=== PATIENT | male | born 1965 | race Hispanic/Latino ===

== ENCOUNTER 2022-06-08 05:43 | Emergency (ER) | payer BC ==
[2022-06-08] MEDS ORDERED: Lidocaine 1% (PF) 30 ML VIAL ONE (06:15)
[2022-06-08] MEDS ORDERED: Acetaminophen 500 MG TAB ONE (06:15)
[2022-06-08] MEDS ORDERED: Bacitracin 1 PK ONE (06:24)
[2022-06-08 07:09] LABS: Bilirubin Negative (Negative); Blood, Urine Moderate (Negative); Clarity Clear (Clear); Glucose, Urine (Dipstick) Negative (Negative); Ketone, Urine Negative (Negative); Leukocyte Negative (Negative); Nitrite Negative (Negative); Protein, Urine (Dipstick) Negative (Neg-Trace); Specific Gravity, Urine 1.015 (1.005-1.030); Urobilinogen 0.2 mg/dL (Less than 2)
[2022-06-08 07:12] LABS: Bacteria/HPF None Seen HPF (None Seen); Squamous Epithelial None Seen HPF (0-3); WBC/HPF 0-3 HPF (0-3)
== END 2022-06-08 07:37 | disposition home or self-care (01) ==
LOC: NAV ERS 05:43
DX: S61.532A Puncture wound without foreign body of left wrist, initial encounter (principal); R33.9 Retention of urine, unspecified; W26.8XXA Contact with other sharp object(s), not elsewhere classified, initial encounter; Y92.009 Unspecified place in unspecified non-institutional (private) residence as the place of occurrence of the external cause
CPT/HCPCS: 81003; 81015; J2001

== ENCOUNTER 2023-01-19 12:57 | Emergency (ER) | payer OTHER, BC ==
[2023-01-19] MEDS ORDERED: Dexamethasone 20 MG/5 ML VIAL ONE (13:57)
== END 2023-01-19 14:50 | disposition home or self-care (01) ==
LOC: NAV ERS 12:57
DX: S33.5XXA Sprain of ligaments of lumbar spine, initial encounter (principal); W01.0XXA Fall on same level from slipping, tripping and stumbling without subsequent striking against object, initial encounter
CPT/HCPCS: 72125; 72128; 72131; J1100